=== PATIENT | female | born 1955 | race Caucasian/White ===

== ENCOUNTER 2023-12-08 20:10 | Emergency (ER) | payer BC ==
[2023-12-08 20:25] VITALS: RESP 18; BMI 38.0
[2023-12-08 20:34] VITALS: BP 165/89; PULSE 89; TEMP 98
[2023-12-08] MEDS ORDERED: KETOROLAC TROMETHAMINE 60 MG/2 ML VIAL ONE (20:41)
[2023-12-08] MEDS ORDERED: ACETAMINOPHEN WITH CODEINE 300MG/30MG TABLET ONE (20:41)
[2023-12-08] MEDS: KETOROLAC TROMETHAMINE 60 MG/2 ML VIAL IM ONE (20:42)
[2023-12-08] MEDS: ACETAMINOPHEN WITH CODEINE 300MG/30MG TABLET PO ONE (20:42)
== END 2023-12-08 20:49 | disposition home or self-care (01) ==
LOC: FER 20:10
PROC: 3E0133Z Introduction of Anti-inflammatory into Subcutaneous Tissue, Percutaneous Approach (ICD-10-PCS; principal; 2023-12-08)
DX: K08.89 Other specified disorders of teeth and supporting structures (principal)
CPT/HCPCS: 99284-25